=== PATIENT | male | born 1970 | race Caucasian/White ===

== ENCOUNTER → 2017-06-19 | Outpatient (CLI) | payer OTHER ==
[2017-06-19 17:38] LABS: BLOOD UREA NITROGEN 15 mg/dl (7-18); BUN/CREATININE RATIO 14.9 (10-20)
== END | disposition home or self-care (01) ==
LOC: C.LAB 15:57
PROVIDERS: ATTEND Urology
DX: N23 Unspecified renal colic (principal)

== ENCOUNTER → 2017-07-03 | Outpatient (CLI) | payer OTHER ==
[~2017-07-03] MED LIST: OPTIRAY 300 IV PRN
--- NOTE | 2017-07-03 13:54 | DIAGNOSTIC IMAGING REPORT ---
NUCLEAR MEDICINE RENAL SCAN DIURETIC (MAG 3) CLINICAL HISTORY: Flank pain COMPARISON STUDY: Outside CT scan dated 03/17/2017 FINDINGS: The patient was injected with 8.9 mCi of technetium 99m MAG3. The split renal function reveal that the left kidney contributes 40% of the function and the right kidney contributes 60% of the function The time to peak activity within the right kidney was 8 minutes. The time from the vertex to half max was 13 minutes. The left kidney demonstrated an increasing time activity curve. At 20 minutes, the patient was injected with 20 mg of intravenous Lasix. There is no Lasix response on the left as there is a persistent increasing time activity curve. Static images indicate a dilated left renal pelvis most pronounced the level of the upper pole IMPRESSION: 1. Obstructed left renal time activity curve. No Lasix response 2. Essentially normal right renogram curve 3. Split renal function of 60% on the right and 40% on the left Electronically signed by: Vivek Sarmiento M.D. 07/03/2017 1:53 PM Dictated Date/Time: 07/03/2017 1:49 PM
--- NOTE | 2017-07-03 16:06 | DIAGNOSTIC IMAGING REPORT ---
IV PYELOGRAM CLINICAL HISTORY: Renal pain. Left hydronephrosis. COMPARISON STUDY: Abdominal CT dated 03/17/2017. Nuclear renal scan dated 07/03/2017. TECHNIQUE: An abdominal filter pulp washer radiograph is performed. IVP pyelogram was then performed following the IV administration of iodinated contrast, tomographic images are acquired in the corticomedullary and excretory phases of enhancement. Overhead views of the renal collecting system and bladder were obtained in multiple obliquities both pre and post void. The examination is degraded by large body habitus. FINDINGS: Abdominal filter pulp washer radiograph shows no evidence of bowel obstruction. There is no radiographic evidence of nephrolithiasis. Phleboliths are seen in the pelvis. The bony structures appear intact. Following contrast administration there is somewhat diminished cortical enhancement of the left kidney as compared to the right. There is fullness of the right renal collecting system. Moderate to severe left hydronephrosis is again seen. There is normal excretion from the right ureter. No excretion was seen from the left kidney. There is no significant excretion seen from the left kidney on extended delayed images (45 and 55 minutes) with contrast pooled in the renal pelvis. There is no clear evidence of urothelial lesion within the renal pelvis bilaterally or involving the right ureter. This was not well evaluated. The bladder was normal as visualized. No significant post void residual is identified. IMPRESSION: 1. Moderate to severe left hydronephrosis is identified. No significant excretion is seen from left kidney with imaging carried out 55 minutes. The appearance suggest a ureteropelvic junction level obstruction. 2. There is fullness of the right renal collecting system without evidence of hydronephrosis. 3. The bladder was normal as visualized. 4. The examination was degraded by large body habitus. Electronically signed by: Dioni Hogue M.D. 07/03/2017 4:04 PM Dictated Date/Time: 07/03/2017 3:59 PM
== END | disposition home or self-care (01) ==
LOC: C.NUCL 11:53
PROVIDERS: ATTEND Urology
DX: N23 Unspecified renal colic (principal); N13.30 Unspecified hydronephrosis